=== PATIENT | male | born 1990 | race Caucasian/White ===

== ENCOUNTER 2018-08-09 13:05 | Emergency (ER) | payer OTHER ==
--- NOTE | 2018-08-09 13:58 | ER ---
Nurse's Notes [facility] Name: Chandler Sandhu Age: 28 yrs Sex: Male : 1990 Arrival Date: 08/09/2018 Time: 13:06 Bed 15 Private MD: Diagnosis: Weakness Presentation: 08/09 12:59 Presenting complaint: EMS states: Caregiver has been diagnosed with C-Diff and he wants rb1 to see if he has it. History of Brain cancer since 2014, has a Home Health Nurse at home. Pt. is not currently on any treatment for the cancer. BP 139/92, 128/88, P 58, 98% RA. 12:59 Method Of Arrival: EMS: [facility] rb1 15:02 Acuity: EMANUEL 4 ae4 Historical: - Allergies: 13:09 No Known Allergies; rb1 - PMHx: 13:09 Brain Cancer; rb1 Assessment: 13:30 General: Appears in no apparent distress. comfortable, unkempt, Behavior is ae4 cooperative. Pain: Denies pain. Neuro: Level of Consciousness is awake, alert, obeys commands, Oriented to person, place. Cardiovascular: Patient's skin is warm and dry. Respiratory: Airway is patent Respiratory effort is even, unlabored, Respiratory pattern is regular, symmetrical. GI: Reports diarrhea. : No signs and/or symptoms were reported regarding the genitourinary system. EENT: wears glasses.. Derm: skin is dry. Musculoskeletal: No signs and/or symptoms reported regarding the musculoskeletal system. 13:30 Reassessment: Patient is asking for a phone dial printer and a meal.Charge nurse notified. ae4 13:35 Reassessment: dial printer given to patient awaiting for phone to charge so patient can ss charge phone enough to turn on and get appropriate phone numbers off of. Pt has not complaints at this time. Denies abd pain, N/V and or Diarrhea. 15:52 Reassessment: Spoke with Aunt who seemed upset that patient was up for discharge. Spoke ss with patient to obtain permission to speak with Aunt regarding patient's visit and plan of care. Pt states okay to speak with Aunt Lolis. Aunt is concerned that patient may have CDIFF as he has been exposed to his caregiver who has recently been admitted to hospital for CDIFF. Aunt also states that she spoke with [facility] who told her to have ERP call to arrange for transportation to [place]. Attempted to explain to Aunt that transport and/or admission is unnecessary at this time as patient does not have any complaints and does not meet criteria. Pt denies abd pain and diarrhea. Aunt believes that patient is lying to ER staff. After confirming with patient yet again that he has not had any diarrhea and/or abd pain, patient stated that his Aunt "mellisashiing". Aunt states that since caregiver was admitted to hospital nobody has been able to take care of patient at home, and that other's are worried to come over as he may have CDIFF. Aunt states over the phone that she is not in town and that she is going to call [facility] and call back momentarily. Patient updated on conversation with Aunt. Vital Signs: 13:07 BP 139 / 91; Pulse 51; Resp 16; Pulse Ox 100% on R/A; Pain 0/10; rb1 14:36 Temp 98.5(O); ae4 ED Course: 13:06 Patient arrived in ED. rb1 13:07 Edgar Hartman MD is Attending Physician. daryl 14:35 Eddei Pompa, RN is Primary Nurse. ae4 15:02 Triage completed. ae4 Administered Medications: No medications were administered Outcome: 13:55 Discharge ordered by . daryl 16:26 Patient left the ED. ae4 Signatures: Edgar Hartman MD MD cha Smirch, Shelby, RN RN Natalia Collins, RN RN rb1 Eddie Pompa, MEGHA RN ae4
--- NOTE | 2018-08-09 13:59 | EDPHYS ---
Physician Documentation [facility] Name: Chandler Sandhu Age: 28 yrs Sex: Male : 1990 Arrival Date: 08/09/2018 Time: 13:06 Bed 15 Private MD: ED Physician Edgar Hartman HPI: 08/09 13:48 This 28 yrs old Male presents to ER via EMS with complaints of Possible daryl C-Diff. 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 daryl Historical: - Allergies: 13:09 No Known Allergies; rb1 - PMHx: 13:09 Brain Cancer; rb1 ROS: 13:50 Constitutional: Negative for fever, chills, and weight loss, Eyes: Negative for injury, daryl pain, redness, and discharge, ENT: Negative for injury, pain, and discharge, Neck: Negative for injury, pain, and swelling, Cardiovascular: Negative for chest pain, palpitations, and edema, Respiratory: Negative for shortness of breath, cough, wheezing, and pleuritic chest pain, Abdomen/GI: Negative for abdominal pain, nausea, vomiting, diarrhea, and constipation, Back: Negative for injury and pain, : Negative for injury, bleeding, discharge, and swelling, MS/Extremity: Negative for injury and deformity, Skin: Negative for injury, rash, and discoloration, Neuro: Negative for headache, weakness, numbness, tingling, and seizure, Psych: Negative for depression, anxiety, suicide ideation, homicidal ideation, and hallucinations, Allergy/Immunology: Negative for hives, rash, and allergies, Endocrine: Negative for neck swelling, polydipsia, polyuria, polyphagia, and marked weight changes, Hematologic/Lymphatic: Negative for swollen nodes, abnormal bleeding, and unusual bruising. Exam: 13:50 Constitutional: This is a well developed, well nourished patient who is awake, alert, daryl and in no acute distress. Head/Face: Normocephalic, atraumatic. Eyes: Pupils equal round and reactive to light, extra-ocular motions intact. Lids and lashes normal. Conjunctiva and sclera are non-icteric and not injected. Cornea within normal limits. Periorbital areas with no swelling, redness, or edema. ENT: Nares patent. No nasal discharge, no septal abnormalities noted. Tympanic membranes are normal and external auditory canals are clear. Oropharynx with no redness, swelling, or masses, exudates, or evidence of obstruction, uvula midline. Mucous membranes moist. Neck: Trachea midline, no thyromegaly or masses palpated, and no cervical lymphadenopathy. Supple, full range of motion without nuchal rigidity, or vertebral point tenderness. No Meningismus. Chest/axilla: Normal chest wall appearance and motion. Nontender with no deformity. No lesions are appreciated. Cardiovascular: Regular rate and rhythm with a normal S1 and S2. No gallops, murmurs, or rubs. Normal PMI, no JVD. No pulse deficits. Respiratory: Lungs have equal breath sounds bilaterally, clear to auscultation and percussion. No rales, rhonchi or wheezes noted. No increased work of breathing, no retractions or nasal flaring. Abdomen/GI: Soft, non-tender, with normal bowel sounds. No distension or tympany. No guarding or rebound. No evidence of tenderness throughout. Back: No spinal tenderness. No costovertebral tenderness. Full range of motion. Male : Normal genitalia with no discharge or lesions. Skin: Warm, dry with normal turgor. Normal color with no rashes, no lesions, and no evidence of cellulitis. MS/ Extremity: Pulses equal, no cyanosis. Neurovascular intact. Full, normal range of motion. Neuro: Awake and alert, GCS 15, oriented to person, place, time, and situation. Cranial nerves II-XII grossly intact. Motor strength 5/5 in all extremities. Sensory grossly intact. Cerebellar exam normal. Normal gait. Psych: Awake, alert, with orientation to person, place and time. Behavior, mood, and affect are within normal limits. Vital Signs: 13:07 BP 139 / 91; Pulse 51; Resp 16; Pulse Ox 100% on R/A; Pain 0/10; rb1 14:36 Temp 98.5(O); ae4 MDM: 13:08 Patient medically screened. [facility] [place] 13:51 Data reviewed: vital signs, nurses notes. [facility] 08/09 15:40 Order name: PO challenge; Complete Time: 15:43 [facility] [place] Administered Medications: No medications were administered Disposition: 08/09/18 13:55 Discharged to Home. Impression: Weakness. - Condition is Stable. - Discharge Instructions: Weakness, Clostridium Difficile Infection, Weakness, Lamg-[id number], Clostridium Difficile Infection, [id number], Clostridium Difficile FAQs - MCNEIL. - Medication Reconciliation Form, Thank You Letter, Antibiotic Education, Prescription Opioid Use form. - Follow up: Private Physician; When: 2 - 3 days; Reason: Recheck today's complaints, Continuance of care, Re-evaluation by your physician. - Problem is new. - Symptoms have improved. Signatures: Dispatcher [employer] EDWI Edgar Hartman MD MD cha Barber, Rebecca, Eddie Rubio RN, RN RN ae4 Corrections: (The following items were deleted from the chart) 16:26 13:55 08/09/2018 13:55 Discharged to Home. Impression: Weakness. Condition is Stable. ae4 Forms are Medication Reconciliation Form, Thank You Letter, Antibiotic Education, Prescription Opioid Use. Follow up: Private Physician; When: 2 - 3 days; Reason: Recheck today's complaints, Continuance of care, Re-evaluation by your physician. Problem is new. Symptoms have improved. daryl
== END 2018-08-09 16:26 | disposition home or self-care (01) ==
LOC: ER 13:05
DX: R53.1 Weakness (principal); C71.9 Malignant neoplasm of brain, unspecified
CPT/HCPCS: 99282